=== PATIENT | male | born 1945 | race Caucasian/White ===

== ENCOUNTER → 2020-05-13 11:47 | Outpatient (BNVA) | payer OTHER, SELFPAY | PROVIDERS: Family Provider Nurse Practitioner; PCP Nurse Practitioner; Visit Provider Nurse Practitioner Family | DX: N49.2 Inflammatory disorders of scrotum (principal) | CPT/HCPCS: 84450; 87070; 87077; 87186 ==

== ENCOUNTER → 2021-05-06 10:28 | Outpatient (BNVA) | payer OTHER, SELFPAY | PROVIDERS: Family Provider Nurse Practitioner; PCP Family Medicine; Referring Provider Family Medicine; Visit Provider Urology | DX: C61 Malignant neoplasm of prostate (principal); N40.0 Benign prostatic hyperplasia without lower urinary tract symptoms; R30.0 Dysuria; N41.1 Chronic prostatitis; N39.3 Stress incontinence (female) (male) | CPT/HCPCS: 81003; G0103 ==

== ENCOUNTER → 2021-06-03 09:51 | Outpatient (BNVA) | payer OTHER, SELFPAY | PROVIDERS: Family Provider Nurse Practitioner; PCP Family Medicine; Visit Provider Urology | DX: N41.1 Chronic prostatitis (principal); N39.3 Stress incontinence (female) (male); C61 Malignant neoplasm of prostate; Z92.3 Personal history of irradiation | CPT/HCPCS: 81003; 87086 ==

== ENCOUNTER → 2021-07-07 10:30 | Outpatient (BNVA) | payer OTHER, SELFPAY | PROVIDERS: Family Provider Nurse Practitioner; PCP Family Medicine; Visit Provider Internal Medicine | DX: Z01.812 Encounter for preprocedural laboratory examination (principal); Z86.010 Personal history of colon polyps; Z20.822 Contact with and (suspected) exposure to COVID-19 | CPT/HCPCS: 87635 ==

== ENCOUNTER 2021-07-10 08:51 | Day surgery (SDC) | payer OTHER, MEDICARE, SELFPAY ==
[2021-07-07 08:43] VITALS: BMI 34.0
--- NOTE | 2021-07-10 09:15 | W.PM.OPSFHP ---
Same Day Surgery H&P Indication for Procedure/HPI DATE OF PROCEDURE: July 10, 2021 CHIEF COMPLAINT/INDICATIONFOR SURGICAL PROCEDURE: Preop diagnosis is history of colon polyps PREOP DIAGNOSIS: With polyp PLANNED PROCEDRUE: Operation Date: 07/10/21 10:15 Proposed Procedures p Colonoscopy G0105 Z86.010(Not Applicable) - Issa Duncan MD Medications/Allergies* Home Medications Medication Instructions Recorded Confirmed Type aspirin 81 mg tablet,delayed 81 mg PO DAILY 05/13/20 07/07/21 History release clopidogrel 75 mg tablet 75 mg PO DAILY 05/13/20 07/07/21 History gabapentin 300 mg capsule 300 mg PO TID 05/13/20 07/07/21 History latanoprost 0.005 % eye drops, 1 drop OPHTHALMIC (EYE) DAILY 05/13/20 07/07/21 History emulsion metformin 500 mg tablet 500 mg PO BID 05/13/20 07/07/21 History metoprolol tartrate 25 mg tablet 12.5 mg PO BID 05/13/20 07/07/21 History pantoprazole 20 mg tablet,delayed 20 mg PO DAILY 05/13/20 07/07/21 History release pentoxifylline 400 mg 400 mg PO Q8H 05/13/20 07/07/21 History tablet,extended release rosuvastatin 10 mg sprinkle capsule 10 mg PO DAILY 05/13/20 07/07/21 History tramadol 50 mg tablet 50 mg PO Q6H PRN 05/13/20 07/07/21 History losartan 50 mg tablet 100 mg PO DAILY tab 05/06/21 07/07/21 History isosorbide mononitrate 30 mg PO DAILY 07/07/21 07/07/21 History Allergies/Adverse Reactions Allergy/AdvReac Type Severity Reaction Status Date / Time No Known Allergies Allergy Verified 06/30/21 09:31 Pertinent History/Comorbid Conditions* Medical History (Updated 06/30/21 @ 10:14 by Issa Duncan MD) BPH (benign prostatic hyperplasia) Diabetes mellitus Essential hypertension History of radiation therapy History of trigger finger Surgical History (Updated 05/06/21 @ 15:45 by Mesfin Almanzar MD) Hx of heart bypass surgery Hx of transurethral resection of prostate Family History (Updated 05/06/21 @ 10:36 by HALEY Adamson) Mother, AT AGE 78 Stroke Mother FATHER AT AGE 86 OLD AGE Social History Smoking and tobacco status: former smoker Alcohol intake: current Alcohol intake frequency: holidays/special occasions only Marital status: Current occupational status: retired History of recent travel: No Pertinent Exam Findings alert, oriented x 3, clear to auscultation bilaterally, regular rate & rhythm, operative site marked and procedure specific exam findings Recommendations Surgery/Procedure today Coding Level of Care Code Acute Strategic Consultant for Ad Velásquez
--- NOTE | 2021-07-10 09:21 | ANES.PREANE2 ---
Pre-Anesthetic Assessment Pre-Anesthetic Assessment: Height/Weight: Height 1.88 m Weight 120.202 kg Preop Diagnosis: With polyp Proposed Procedure: Operation Date: 07/10/21 10:15 Proposed Procedures p Colonoscopy G0105 Z86.010(Not Applicable) - Issa Duncan MD Was Beta Grey taken within 24 hours: Yes Was Clonidine taken within 24 hours: N/A Social: Social History: No alcohol and No tobacco Exam: Pre-Anes Outpt Exam: alert, oriented x 3, clear to auscultation bilaterally and regular rate & rhythm Airway: Submandibular: WNL Cervical ROM: WNL MP: 2 Dentition: Loose CV/HEM: CV/HEM: PVD GI: GI: GERD Metabolic: Metabolic: DM, Hyperlipidemia and Morbid obesity Anesthetic Plan: ASA status: 3 Anesthesia: MAC Risk of > 500 ml blood loss (7ml/kg in children): No PFSH Anesthesia PFSH: Medical History BPH (benign prostatic hyperplasia) Diabetes mellitus Essential hypertension History of radiation therapy History of trigger finger Surgical History Hx of heart bypass surgery Hx of transurethral resection of prostate Family History Mother , AT AGE 78 Stroke FATHER AT AGE 86 OLD AGE Social History Smoking and tobacco status: former smoker Alcohol intake: current Alcohol intake frequency: holidays/special occasions only Marital status: Current occupational status: retired History of recent travel: No Data Anesthesia Cardiac Studies: No Data to Display
[2021-07-10 09:36] VITALS: BP 186/86; PULSE 55; RESP 18; TEMP 36.7; O2SAT 96
[2021-07-10] MEDS: sodium chloride 0.9% 1,000 ML 30 ML IV (09:54)
[2021-07-10 09:58] LABS: Glucose Point of Care 106 mg/dL (70-110)
[2021-07-10 11:02] VITALS: BP 133/64; PULSE 65; RESP 16; TEMP 36.3; O2SAT 95
[2021-07-10 11:13] VITALS: BP 137/77; PULSE 63; RESP 17; O2SAT 95
== END 2021-07-10 11:25 | disposition home or self-care (01) ==
PROVIDERS: PCP Family Medicine; Visit Provider Internal Medicine
PROC: 0DJD8ZZ Inspection of Lower Intestinal Tract, Via Natural or Artificial Opening Endoscopic (ICD-10-PCS; CPT 45378; principal; 2021-07-10 10:15)
DX: Z12.11 Encounter for screening for malignant neoplasm of colon (principal); Z86.010 Personal history of colon polyps; D12.2 Benign neoplasm of ascending colon; D12.4 Benign neoplasm of descending colon; K21.9 Gastro-esophageal reflux disease without esophagitis; E78.5 Hyperlipidemia, unspecified; E11.9 Type 2 diabetes mellitus without complications; E66.01 Morbid (severe) obesity due to excess calories; Z68.34 Body mass index [BMI] 34.0-34.9, adult; N40.0 Benign prostatic hyperplasia without lower urinary tract symptoms; I10 Essential (primary) hypertension; Z87.891 Personal history of nicotine dependence
CPT/HCPCS: 36416; 45385; 82962; 88305; 96360; J2704; J7030

== ENCOUNTER 2022-02-22 14:52 | Outpatient (CLI) | payer OTHER, SELFPAY ==
[2022-02-22 16:46] LABS: Prostate Specific Antigen < 0.014 ng/mL (0-4)
== END 2022-02-22 14:53 | disposition home or self-care (01) ==
LOC: LAB 14:54
PROVIDERS: PCP Family Medicine; Visit Provider Urology
DX: C61 Malignant neoplasm of prostate (principal); N41.1 Chronic prostatitis; N39.3 Stress incontinence (female) (male)
CPT/HCPCS: 51741; 51798; 81003; 84153; 87077; 87086; 87186; 99213

== ENCOUNTER 2022-08-04 11:45 | Outpatient (CLI) | payer OTHER, SELFPAY ==
--- NOTE | 2022-08-04 | USCV_ITS ---
Octavio Pako Age: 77 Gender: M : 1945 Exam Date: 08/04/2022 12:44 Ordering Phys: Unique Vernon MD Technologist: PEGGY Exam Location: [facility] [place] Indication: Bruit Risk Factors: Previous Vascular Surgery: Right Brachial BP: / Left Brachial BP: / Right Left Velocity (cm/s) Spectral Plaque Velocity (cm/s) Spectral Plaque Syst/Diast Broadening Syst/Diast Broadening 65.70/ 7.20 Prox CCA 89.30 / 9.90 80.80/ 8.50 Mid CCA 58.30 / 7.00 57.80/ 8.50 Hetro Distal CCA 45.80 / 12.40 Hetro 59.80/ 7.90 Prox ICA 42.70 / 7.80 50.00/ 12.50 Mid ICA 59.00 / 16.30 59.20/ 13.10 Distal ICA 43.50 / 12.40 137.80 ECA 113.60 0.74 ICA/CCA 0.66 Antegrade Vertebral Antegrade 37.70/ 0.80 cm/s 50.50/ 14.00 cm/s Tri Subclavian Tri 127.9 120.2 0 0 FINDINGS No significant obstructive lesions noted in the extracranial carotid system. Minimal dense plaques of the bifurcations and proximal internal carotid arteries bilaterally. Antegrade flow in the vertebral arteries bilaterally. Normal Doppler flow velocities in the external carotid and subclavian arteries bilaterally CONCLUSIONS Minimal plaques at the bifurcations bilaterally, suggesting less than 50% stenosis. No similar previous studies are available for comparison Dr Mouna Nugent MD [facility] (Electronically Signed) Final Date: 05 August 2022 10:16 S
--- NOTE | 2022-08-04 | USCV_ITS ---
Octavio Pako Age: 77 Gender: M : 1945 Exam Date: 08/04/2022 12:05 Ordering Phys: Unique Vernon MD Technologist: PEGGY Exam Location: [facility] [place] Indication: PAD Risk Factors: Previous Vascular Surgery: RIGHT LEFT BP: 119.0 / 60.00 BP: 137.0/ 59.00 0 0 Waveform Velocity (cm/s) Velocity (cm/s) Waveform Biphasic 104.7 Iliac Prox 99.2 Biphasic Triphasic 122.4 Iliac Mid 92.6 Biphasic Triphasic Iliac Distal Biphasic 86.0 80.3 Triphasic 86.0 MANAGER FLIGHT 70.9 Biphasic Biphasic 84.9 SFA Prox 62.4 Biphasic Biphasic 70.6 SFA Mid 64.9 Biphasic Biphasic 84.9 SFA Dist 90.6 Biphasic Biphasic 92.6 POP 178.1 Biphasic Biphasic 59.8 QUARRYMAN 33.3 Biphasic Biphasic 50.4 DPA 42.7 Biphasic 1.1 LEXI 1.0 FINDINGS No hemodynamically significant evidence of arterial disease in bilateral lower extremities. Minimal scattered plaques in the iliac and femoral arteries bilaterally Moderate to heavy plaque in the left popliteal artery Resting LEXI 1.1 on the right and 1.0 on the left CONCLUSIONS 1. Normal resting ABIs bilaterally, suggesting no significant arterial obstruction. 2. Minimal plaques in the iliac and femoral arteries bilaterally 3. Moderate to heavy plaques in the left popliteal artery Consider exercise LEXI to better evaluate the functional significance, especially of the left popliteal artery lesions Dr Mouna Nugent MD [facility] (Electronically Signed) Final Date: 05 August 2022 10:12 S
== END 2022-08-04 11:46 | disposition home or self-care (01) ==
PROVIDERS: PCP Family Medicine; Visit Provider Family Medicine
DX: I73.9 Peripheral vascular disease, unspecified (principal); R09.89 Other specified symptoms and signs involving the circulatory and respiratory systems; I65.23 Occlusion and stenosis of bilateral carotid arteries; I70.8 Atherosclerosis of other arteries
CPT/HCPCS: 93880; 93925

== ENCOUNTER → 2022-11-25 08:58 | Outpatient (BNVA) | payer OTHER, SELFPAY | PROVIDERS: PCP Family Medicine; Visit Provider Urology | DX: C61 Malignant neoplasm of prostate (principal) | CPT/HCPCS: 84153 ==

== ENCOUNTER → 2022-11-30 10:19 | Outpatient (BNVA) | payer OTHER, SELFPAY | PROVIDERS: PCP Family Medicine; Visit Provider Urology | DX: C61 Malignant neoplasm of prostate (principal); N39.3 Stress incontinence (female) (male); N41.1 Chronic prostatitis | CPT/HCPCS: 51798; 81003; 99213 ==

== ENCOUNTER → 2023-04-14 15:35 | Outpatient (BNVA) | payer OTHER, SELFPAY | PROVIDERS: PCP Family Medicine; Visit Provider Internal Medicine Cardiovascular Disease | DX: R07.9 Chest pain, unspecified (principal); I25.10 Atherosclerotic heart disease of native coronary artery without angina pectoris; R01.1 Cardiac murmur, unspecified; R00.1 Bradycardia, unspecified; I10 Essential (primary) hypertension; E11.9 Type 2 diabetes mellitus without complications; E78.5 Hyperlipidemia, unspecified; Z87.891 Personal history of nicotine dependence | CPT/HCPCS: 93005; 93242; 99204 ==

== ENCOUNTER 2023-05-12 10:27 | Outpatient (CLI) | payer OTHER, SELFPAY ==
--- NOTE | 2023-05-12 10:45 | USCV_ITS ---
Pako Cunningham Age: 77 Gender: M : 1945 Exam Date: 05/12/2023 10:48 Ordering Phys: Mouna Nugent MD ([email or web address]) Technologist: Pancho Brooks Exam Location: [facility] [place] Indication: heart murmur BP: 147 / 74 HR: 65 Rhythm: Sinus Technical Quality: Adequate MEASUREMENTS (Male / Female) Normal Values 2D ECHO LVOT Diameter 2.2 cm LV Ejection Fraction MOD 2C 68.5 % LV Ejection Fraction 2C AL 71.0 % LA Diameter 3.3 cm LA Width 3.6 cm LA Height 4.5 cm RA Width 4.0 cm RA Height 5.0 cm Aorta at Sinotubular Diameter 2.4 cm IVC Diameter 1.5 cm M-MODE Aortic Annulus Diameter 3.1 cm LA Ao Ratio MM 1.1 MV E Point Septal Separation 0.6 cm DOPPLER AV Peak Velocity 209.8 cm/s LVOT Peak Velocity 79.0 cm/s AV Area Cont Eq vti 1.8 cm squared AV Area Cont Eq pk 1.4 cm squared MV Peak Velocity 114.0 cm/s MV Area PHT 3.3 cm squared Mitral E to A Ratio 0.7 MV E' Velocity 35.5 cm/s Mitral E to MV E' Ratio 9.0 Mitral E to LV E' Lateral Ratio 8.1 Mitral E to LV E' Septal Ratio 10.3 TR Peak Velocity 158.8 cm/s TR Peak Gradient 10.1 mmHg TR Mean Velocity 116.6 cm/s TR Mean Gradient 5.8 mmHg TR Velocity Time Integral 35.2 cm Right Atrial Pressure 3.0 mmHg Pulmonary Artery Systolic Pressu 13.1 mmHg PV Peak Velocity 120.3 cm/s RV Acceleration Time 0.1 s RV Ejection Time 0.3 s RV AcT/ET 0.4 FINDINGS Left Ventricle Normal left ventricular size and systolic function, EF 69 %. No regional wall motion abnormalities. Grade I/IV diastolic dysfunction (abnormal relaxation filling pattern), normal to mildly elevated filling pressures. Right Ventricle The right ventricle is normal in size and function. Right Atrium The right atrium is normal in size. Left Atrium The left atrium is normal in size. Mitral Valve Thickened with minimal calcification in the posterior mitral leaflet Aortic Valve Aortic valve sclerosis. Moderate aortic valve calcification. Tricuspid Valve Trace tricuspid valve regurgitation. Pulmonic Valve No gross abnormalities noted Pericardium Normal pericardium without effusion. Aorta Normal ascending aorta dimension. IVC Normal inferior vena cava. CONCLUSIONS Normal left ventricular size and systolic function, EF 69 %. No regional wall motion abnormalities. Grade I/IV diastolic dysfunction (abnormal relaxation filling pattern), normal to mildly elevated filling pressures. Thickened with minimal calcification in the posterior mitral leaflet. Moderate aortic valve calcification. Features of aortic valve sclerosis Trace tricuspid valve regurgitation. Estimated pulmonary artery peak systolic pressure within normal limit There is no pericardial effusion. There are no intracardiac masses. No similar previous studies are available for comparison. Dr Mouna Nugent MD [facility] (Electronically Signed) Final Date: 13 May 2023 13:07 S
== END 2023-05-12 10:28 | disposition home or self-care (01) ==
PROVIDERS: PCP Family Medicine; Visit Provider Internal Medicine Cardiovascular Disease
DX: R06.09 Other forms of dyspnea (principal); R01.1 Cardiac murmur, unspecified; I35.8 Other nonrheumatic aortic valve disorders; I51.89 Other ill-defined heart diseases
CPT/HCPCS: 93306

== ENCOUNTER → 2023-10-26 11:18 | Outpatient (BNVA) | payer OTHER, SELFPAY | PROVIDERS: PCP Family Medicine; Visit Provider Internal Medicine Cardiovascular Disease | DX: I10 Essential (primary) hypertension (principal); I25.10 Atherosclerotic heart disease of native coronary artery without angina pectoris; R00.1 Bradycardia, unspecified; E78.5 Hyperlipidemia, unspecified; I35.8 Other nonrheumatic aortic valve disorders; Z87.891 Personal history of nicotine dependence | CPT/HCPCS: 99214 ==

== ENCOUNTER → 2024-04-23 12:56 | Outpatient (BNVA) | payer SELFPAY | PROVIDERS: PCP Family Medicine; Visit Provider Internal Medicine Cardiovascular Disease | DX: Z79.01 Long term (current) use of anticoagulants (principal); R06.02 Shortness of breath; N18.9 Chronic kidney disease, unspecified; R07.9 Chest pain, unspecified; R00.1 Bradycardia, unspecified | CPT/HCPCS: 36415; 80048; 84443; 85025; 93005 ==

== ENCOUNTER → 2024-07-18 10:55 | Outpatient (BNVA) | payer OTHER, SELFPAY | PROVIDERS: PCP Family Medicine; Referring Provider Family Medicine; Visit Provider Surgery | DX: Z12.11 Encounter for screening for malignant neoplasm of colon (principal) | CPT/HCPCS: 99204 ==

== ENCOUNTER 2024-08-07 09:18 | Day surgery (SDC) | payer OTHER, SELFPAY ==
[2024-08-07 10:05] VITALS: BP 174/79; PULSE 57; RESP 18; TEMP 36.4; O2SAT 98; BMI 29.5
[2024-08-07] MEDS: sodium chloride 0.9% 1,000 ML 30 ML IV (10:10)
--- NOTE | 2024-08-07 10:17 | P.ANESASSM_ITS ---
Pre-Anesthetic Assessment Height/Weight: Height 1.88 m Weight 104.326 kg Temp Pulse Resp BP Pulse Ox O2 Del Method 97.5 F L 57 L 18 174/79 98 Room Air 08/07/24 10:05 08/07/24 10:05 08/07/24 10:05 08/07/24 10:05 08/07/24 10:05 08/07/24 10:05 Preop Diagnosis: screening Operation Date: 08/07/24 11:00 Proposed Procedures p Colonoscopy - 61915, G0121, Z12.11(Not Applicable) - Tre Hernandez MD Was Beta Grey taken within 24 hours: N/A Was Clonidine taken within 24 hours: N/A Last intake: Intake Last Liquid Date 08/06/24 Last Liquid Time 19:00 Last Solid Date 08/05/24 Last Solid Time 13:00 Social No alcohol and No tobacco Exam alert and oriented x 3 Airway Submandibular: within normal limits Cervical ROM: within normal limits Mallampati: Class II Dentition: other (some missing) History/ROS No significant history except as noted Pulmonary None reported CV/HEM Coronary Artery Disease and Hypertension CABG 2014 None reported Hepatic None reported GI Gastroesophageal Reflux Disease Metabolic Diabetes Mellitus and Hyperlipidemia [facility] [place] Lower Back Pain Neuropsych None reported Anesthetic Plan ASA status: 3 Anesthesia: MAC Risk of > 500 ml blood loss (7ml/kg in children): No Medications/Allergies Home Medications Medication Instructions Recorded Confirmed Last Taken Type aspirin 81 mg tablet,delayed 81 mg PO DAILY 05/13/20 08/07/24 08/06/24 History release (Aspir-) clopidogrel 75 mg tablet (Plavix) 75 mg PO DAILY 05/13/20 08/07/24 08/01/24 History gabapentin 300 mg capsule 300 mg PO TID 05/13/20 08/07/24 08/06/24 History latanoprost 0.005 % eye drops, 1 drop ophthalmic (eye) DAILY 05/13/20 08/07/24 08/06/24 History emulsion metoprolol tartrate 25 mg tablet 12.5 mg PO BID 05/13/20 08/07/24 08/06/24 History pantoprazole 20 mg tablet,delayed 20 mg PO DAILY 05/13/20 08/07/24 08/06/24 History release pentoxifylline 400 mg 400 mg PO Q8H 05/13/20 08/07/24 08/06/24 History tablet,extended release rosuvastatin 10 mg sprinkle capsule 10 mg PO DAILY 05/13/20 08/07/24 08/02/24 History losartan 50 mg tablet 100 mg PO DAILY 05/06/21 08/07/24 08/06/24 History isosorbide mononitrate 60 mg 60 mg PO DAILY #90 tabs 04/14/23 08/07/24 08/06/24 Rx tablet,extended release 24 hr doxycycline hyclate 100 mg tablet 100 mg PO BID 10 days #20 tabs 12/21/23 08/07/24 08/06/24 Rx pioglitazone 15 mg tablet 15 mg PO DAILY 07/18/24 08/07/24 08/06/24 History Allergies Allergy/AdvReac Type Severity Reaction Status Date / Time No Known Allergies Allergy Verified 07/18/24 11:03 Current Medications Generic Name Dose Route Start Last Admin Trade Name Freq PRN Reason Stop Dose Admin Sodium Chloride 1,000 mls @ 30 mls/hr 08/07/24 10:00 08/07/24 10:10 Sodium Chloride 0.9% IV 30 mls/hr .Q24H JOANN Administration PFSH Anesthesia Medical History History of radiation therapy History of trigger finger Essential hypertension BPH (benign prostatic hyperplasia) Diabetes mellitus Surgical History (Updated 07/18/24 @ 11:10 by Dominique Combs, CT) Hx of heart bypass surgery Hx of transurethral resection of prostate Family History Mother , AT AGE 78 Stroke FATHER AT AGE 86 OLD AGE Social History Smoking and tobacco/nicotine status: never used tobacco/nicotine Alcohol intake: current Alcohol intake frequency: holidays/special occasions only Marital status: / Current occupational status: retired Data Anesthesia Cardiac Studies: Echocardiogram 05/12/23 Holter Monitor 04/14/23
[2024-08-07 10:23] LABS: Glucose Point of Care 90 mg/dL (70-110)
--- NOTE | 2024-08-07 10:23 | P.HPUD_ITS ---
Surgery/Procedure H&P Update DATE OF PROCEDURE: August 07, 2024 DATE H&P PERFORMED: 07/18/24 H&P UPDATE INFORMATION: I have reviewed H&P completed within last 30 days, I have examined patient prior to procedure, No changes to prior documentation and H&P is in [facility] [place] EMR on date indicated PREOP DIAGNOSIS: screening PLANNED PROCEDURE: Operation Date: 08/07/24 11:00 Proposed Procedures p Colonoscopy - 29645, G0121, Z12.11(Not Applicable) - Tre Hernandez MD
[2024-08-07 12:15] VITALS: BP 161/85; PULSE 54; RESP 14; TEMP 36.6; O2SAT 100
[2024-08-07 12:25] VITALS: BP 172/79; PULSE 60; RESP 16; O2SAT 98
[2024-08-07 12:42] VITALS: BP 180/91; PULSE 56; RESP 16; O2SAT 100
--- NOTE | 2024-08-07 12:55 | ANE.PACU2 ---
Inpatient post-anesthesia follow up: Airway intact: Yes Vital signs: Temperature 97.8 F Pulse Rate 56 Respiratory Rate 16 Blood Pressure 180/91 Pulse Oximetry 100 Oxygen Delivery Me thod Room Air Oxygen Flow Rate Fraction of Inspir ed Oxygen Hydration adequate: Yes Nausea and vomiting: No Pain level: 1 Mental status: Baseline
== END 2024-08-07 13:00 | disposition home or self-care (01) ==
PROVIDERS: PCP Family Medicine; Visit Provider Surgery
PROC: 0DJD8ZZ Inspection of Lower Intestinal Tract, Via Natural or Artificial Opening Endoscopic (ICD-10-PCS; CPT 45378; principal; 2024-08-07 11:00)
DX: Z12.11 Encounter for screening for malignant neoplasm of colon (principal); D12.2 Benign neoplasm of ascending colon; D12.4 Benign neoplasm of descending colon; D12.3 Benign neoplasm of transverse colon; D12.5 Benign neoplasm of sigmoid colon; Z79.82 Long term (current) use of aspirin; N40.0 Benign prostatic hyperplasia without lower urinary tract symptoms; E11.9 Type 2 diabetes mellitus without complications; I11.0 Hypertensive heart disease with heart failure; I25.10 Atherosclerotic heart disease of native coronary artery without angina pectoris; Z95.1 Presence of aortocoronary bypass graft; K21.9 Gastro-esophageal reflux disease without esophagitis; E78.5 Hyperlipidemia, unspecified
CPT/HCPCS: 36416; 45380; 45385; 82962; 88305; J2704; J7030

== ENCOUNTER → 2025-01-10 10:05 | Outpatient (BNVA) | payer OTHER, SELFPAY | PROVIDERS: PCP Family Medicine; Visit Provider Internal Medicine Cardiovascular Disease | DX: I25.10 Atherosclerotic heart disease of native coronary artery without angina pectoris (principal); R00.1 Bradycardia, unspecified; I10 Essential (primary) hypertension; I35.8 Other nonrheumatic aortic valve disorders; E78.5 Hyperlipidemia, unspecified | CPT/HCPCS: 99214 ==

== ENCOUNTER → 2025-07-18 13:44 | Outpatient (BNVA) | payer OTHER, SELFPAY | PROVIDERS: PCP Family Medicine; Visit Provider Internal Medicine Cardiovascular Disease | DX: I25.10 Atherosclerotic heart disease of native coronary artery without angina pectoris (principal); I10 Essential (primary) hypertension; R00.1 Bradycardia, unspecified; I35.8 Other nonrheumatic aortic valve disorders; E78.5 Hyperlipidemia, unspecified; Z87.891 Personal history of nicotine dependence | CPT/HCPCS: 99214 ==